=== PATIENT | female | born 1985 | race Caucasian/White ===

== ENCOUNTER 2017-11-05 18:43 | Emergency (ER) | payer MEDICAID ==
--- NOTE | 2017-11-05 21:06 | EDM.PDOC ---
ED HPI GENERAL MEDICAL PROBLEM - General Chief Complaint: Abdominal Pain Stated Complaint: ABD PAIN Time Seen by Provider: 11/05/17 20:45 Source of Information: Reports: Patient, Family, RN Notes Reviewed History Limitations: Reports: No Limitations - History of Present Illness INITIAL COMMENTS - FREE TEXT/NARRATIVE: Amber presents today with complaints of nausea, vomiting and LLQ abdominal pain for 24 hours. 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 Denies: Malaise, Weakness HEENT: Reports: No Symptoms Respiratory: Reports: No Symptoms Cardiovascular: Reports: No Symptoms Endocrine: Reports: No Symptoms GI/Abdominal: Reports: Abdominal Pain, Nausea, Vomiting. Denies: Black Stool, Bloody Stool, Constipation, Diarrhea, Distension : Denies: Flank Pain, Frequency, Hematuria, Urgency, Urinary Retention Musculoskeletal: Reports: No Symptoms Skin: Reports: No Symptoms Neurological: Reports: No Symptoms Psychiatric: Reports: No Symptoms Hematologic/Lymphatic: Reports: No Symptoms Immunologic: Reports: No Symptoms ED EXAM, GI/ABD - Physical Exam Exam: See Below Text/Narrative:: Amber is an alert and oriented 32 year old female presenting with complaints of LLQ abdominal pain, nausea and vomiting for24 hours. Exam Limited By: No Limitations General Appearance: Alert, WD/WN, No Apparent Distress Eyes: Bilateral: Normal Appearance, EOMI Ears: Normal Canal, Hearing Grossly Normal, Other (Right TM normal, rivas with good reflection of light. Left TM has impacted cerumen. ) Throat/Mouth: Normal Lips, Normal Gums, Normal Voice, No Airway Compromise, Other (erythematous oropharynx, no exudate or petechia noted. ) Head: Atraumatic, Normocephalic Neck: Normal Inspection, Supple, Non-Tender, Full Range of Motion Respiratory/Chest: No Respiratory Distress, Lungs Clear, Normal Breath Sounds, No Accessory Muscle Use, Chest Non-Tender Cardiovascular: Normal Peripheral Pulses, Regular Rate, Rhythm, No Edema, No Murmur, No Rub GI/Abdominal Exam: Normal Bowel Sounds, Soft, No Distention, No Mass, Other ( tenderness with palpation to LLQ). No: Guarding, Rigid, Rebound Back Exam: Normal Inspection, Full Range of Motion. No: CVA Tenderness (R), CVA Tenderness (L) Extremities: Normal Inspection, Normal Range of Motion, Non-Tender, No Pedal Edema, Normal Capillary Refill Neurological: Alert, Oriented, CN II-XII Intact, Normal Cognition, Normal Gait, Normal Reflexes, No Motor/Sensory Deficits Psychiatric: Normal Affect, Normal Mood Skin Exam: Warm, Dry, Intact, Normal Color, No Rash Lymphatic: No Adenopathy Course - Vital Signs Last Recorded V/S: Last Vital Signs Temp 37.9 C 11/05/17 20:47 Pulse 110 H 11/05/17 20:47 Resp 16 11/05/17 20:47 BP 120/71 11/05/17 20:47 Pulse Ox 98 11/05/17 20:47 - Orders/Labs/Meds Orders: Active Orders 24 hr Category Date Time Status POC Testing [POC Labs] [RC] ASDIRECTED Care 11/05/17 21:05 Inactive Kidney Stone Protocol [CT] Stat Exams 11/05/17 22:06 Taken Labs: Laboratory Tests 11/05/17 11/05/17 11/05/17 Range/Units 20:52 21:05 21:05 WBC 10.6 (4.5-11.0) K/uL RBC 4.74 (3.30-5.50) M/uL Hgb 14.1 (12.0-15.0) g/dL Hct 43.1 (36.0-48.0) % MCV 91 (80-98) fL MCH 30 (27-31) pg MCHC 33 (32-36) % Plt Count 213 (150-400) K/uL Neut % (Auto) 91 H (36-66) % Lymph % (Auto) 3 L (24-44) % [place] % (Auto) 6 (2-6) % Eos % (Auto) 0 L (2-4) % Baso % (Auto) 0 (0-1) % Sodium 138 L (140-148) mmol/L Potassium 4.1 (3.6-5.2) mmol/L Chloride 104 (100-108) mmol/L Carbon Dioxide 24 (21-32) mmol/L Anion Gap 14.1 H (5.0-14.0) mmol/L BUN 13 (7-18) mg/dL Creatinine 0.7 (0.6-1.0) mg/dL Est Cr Clr Drug Dosing 109.01 mL/min Estimated GFR (MDRD) > 60 (>60) Glucose 105 (74-106) mg/dL Calcium 9.0 (8.5-10.1) mg/dL Total Bilirubin 0.4 (0.2-1.0) mg/dL AST 15 (15-37) U/L ALT 22 (12-78) U/L Alkaline Phosphatase 63 (46-116) U/L Total Protein 7.1 (6.4-8.2) g/dL Albumin 4.0 (3.4-5.0) g/dL Globulin 3.1 (2.3-3.5) g/dL Albumin/Globulin Ratio 1.3 (1.2-2.2) Urine Color Yellow Urine Appearance Slightly cloudy Urine pH 5.0 (4.5-8.0) Ur Specific [place] 1.015 (1.008-1.030) Urine Protein Negative (NEGATIVE) mg/dL Urine Glucose (UA) Normal (NEGATIVE) mg/dL Urine Ketones Negative (NEGATIVE) mg/dL Urine Occult Blood Moderate (NEGATIVE) Urine Nitrite Negative (NEGATIVE) Urine Bilirubin Small (NEGATIVE) Urine Urobilinogen Normal (NORMAL) mg/dL Ur Leukocyte Esterase Large (NEGATIVE) Urine RBC 5-10 H (0-5) Urine WBC 20-30 H (0-5) Ur Epithelial Cells Many Amorphous Sediment Not seen Urine Bacteria Many Urine Mucus Not seen Urine HCG, Qual 11/05/17 Range/Units 21:32 WBC (4.5-11.0) K/uL RBC (3.30-5.50) M/uL Hgb (12.0-15.0) g/dL Hct (36.0-48.0) % MCV (80-98) fL MCH (27-31) pg MCHC (32-36) % Plt Count (150-400) K/uL Neut % (Auto) (36-66) % Lymph % (Auto) (24-44) % [place] % (Auto) (2-6) % Eos % (Auto) (2-4) % Baso % (Auto) (0-1) % Sodium (140-148) mmol/L Potassium (3.6-5.2) mmol/L Chloride (100-108) mmol/L Carbon Dioxide (21-32) mmol/L Anion Gap (5.0-14.0) mmol/L BUN (7-18) mg/dL Creatinine (0.6-1.0) mg/dL Est Cr Clr Drug Dosing mL/min Estimated GFR (MDRD) (>60) Glucose (74-106) mg/dL Calcium (8.5-10.1) mg/dL Total Bilirubin (0.2-1.0) mg/dL AST (15-37) U/L ALT (12-78) U/L Alkaline Phosphatase (46-116) U/L Total Protein (6.4-8.2) g/dL Albumin (3.4-5.0) g/dL Globulin (2.3-3.5) g/dL Albumin/Globulin Ratio (1.2-2.2) Urine Color Urine Appearance Urine pH (4.5-8.0) Ur Specific [place] (1.008-1.030) Urine Protein (NEGATIVE) mg/dL Urine Glucose (UA) (NEGATIVE) mg/dL Urine Ketones (NEGATIVE) mg/dL Urine Occult Blood (NEGATIVE) Urine Nitrite (NEGATIVE) Urine Bilirubin (NEGATIVE) Urine Urobilinogen (NORMAL) mg/dL Ur Leukocyte Esterase (NEGATIVE) Urine RBC (0-5) Urine WBC (0-5) Ur Epithelial Cells Amorphous Sediment Urine Bacteria Urine Mucus Urine HCG, Qual Negative Patient lab work reviewed, we will complete a CT with renal stone protocol. Patient and her in agreement. We will treat her with nitrofurantoin 100mg OP BID for 7 days for Acute UTI. Patient in agreement. Dr. Gilmore in agreement with plan. Meds: Medications Discontinued Medications Generic Name Dose Route Start Last Admin Trade Name Scott PRN Reason Stop Dose Admin Hydrocodone Bitart/Acetaminophen 1 tab 11/05/17 22:07 11/05/17 22:24 Anderson 325-5 Mg PO 11/05/17 22:08 1 tab ONETIME ONE Administration Ondansetron HCl 4 mg 11/05/17 22:07 11/05/17 22:25 Zofran Odt PO 11/05/17 22:08 4 mg ONETIME ONE Administration - Radiology Interpretation CT Results Date: 11/05/17 (CT scan of abdomen and pelvis without contrast negative for acute findings. ) Departure - Departure Time of Disposition: 23:03 Disposition: Home, Self-Care 01 Condition: Good Clinical Impression: Abdominal pain, Urinary tract infection - Discharge Information *PRESCRIPTION DRUG MONITORING PROGRAM REVIEWED*: No *COPY OF PRESCRIPTION DRUG MONITORING REPORT IN PATIENT BRYANT: No Instructions: Abdominal Pain, Adult, [id number], Urinary Tract Infection, Adult Referrals: PCP,None [Primary Care Provider] - Forms: ED Department Discharge Additional Instructions: You have been evaluated and treated in the emergency room for abdominal pain. Keep yourself well hydrated with water. You can take ibuprofen 800 mg and acetaminophen 1000mg PO three times a day as needed for pain. Take nitrofurantoin 100mg by mouth twice per day for acute urinary tract infection. Follow up with your primary provider in 7 to 10 days for a recheck. Return for worsening, issues or concerns. - My Orders Last 24 Hours: My Active Orders 11/05/17 21:05 POC Testing [POC Labs] [RC] ASDIRECTED 11/05/17 22:06 Kidney Stone Protocol [CT] Stat - Assessment/Plan Last 24 Hours: My Active Orders 11/05/17 21:05 POC Testing [POC Labs] [RC] ASDIRECTED 11/05/17 22:06 Kidney Stone Protocol [CT] Stat Assessment:: Abdominal pain Acute urinary tract infection Plan: Patient evaluated and treated in the emergency room for abdominal pain. Keep well hydrated with water. Take ibuprofen 800 mg and acetaminophen 1000mg PO three times a day as needed for pain. Take nitrofurantoin 100mg by mouth twice per day for acute urinary tract infection. Follow up with primary provider in 7 to 10 days for a recheck. Return for worsening, issues or concerns.
[2017-11-05] MEDS ORDERED: Ondansetron 4 MG Tab.DIS PO ONE (22:07)
[2017-11-05] MEDS ORDERED: Acetaminophen/HYDROcodone 325-5 MG Tab PO ONE (22:07)
== END 2017-11-05 23:15 | disposition home or self-care (01) ==
LOC: JP.ED 18:43
DX: N39.0 Urinary tract infection, site not specified (principal)
CPT/HCPCS: 36415; 74176; 80053; 81001; 81025; 85025; 99284; A9270